=== PATIENT | female | born 1965 | race Caucasian/White ===

== ENCOUNTER 2016-06-17 11:37 | Emergency (ER) | payer MEDICAID ==
--- NOTE | 2016-06-17 11:57 | ER Document Report ---
ED Medical Screen (RME) - General Stated Complaint: BLOOD PRESSURE ISSUE Time seen by provider: 11:55 Mode of Arrival: Ambulatory Information source: Patient Notes: 50-year-old female presents to ED for elevated blood pressure. She was sent by her [facility] care due to high blood pressure in the doctor's office. At the [facility] her blood pressure was 220/104. she states she has a headache. Menopause I have greeted and performed a rapid initial assessment of this patient. A comprehensive ED assessment and evaluation of the patient, analysis of test results and completion of medical decision making process will be conducted by an additional ED providers. TRAVEL OUTSIDE OF THE [place] IN LAST 30 DAYS: No - Related Data Allergies/Adverse Reactions: No Known Allergies Allergy (Unverified 07/04/14 11:50) Past Medical History - Past Medical History Cardiac Medical History: Reports: Hx Heart Attack, Hx Hypertension Denies: Hx Coronary Artery Disease Pulmonary Medical History: Denies: Hx Asthma, Hx Bronchitis, Hx COPD, Hx Pneumonia Neurological Medical History: Denies: Hx Cerebrovascular Accident, Hx Seizures Musculoskeltal Medical History: Reports Hx Arthritis - Immunizations Hx Diphtheria, Pertussis, Tetanus Vaccination: No
--- NOTE | 2016-06-17 12:27 | ER Document Report ---
ED General - General Chief Complaint: Blood Pressure Problem Stated Complaint: BLOOD PRESSURE ISSUE Mode of Arrival: Ambulatory Notes: 50-year-old female past medical history hypertension and GA sent here by her primary physician for elevated blood pressure. She states that her blood pressure was 220/110 at her primary physician's office and they were concerned because she has also been having headaches and chest pain over the recent past therefore they sent her here. However, the patient states that her headaches and chest pain started only when she was switched to losartan with potassium which is a new medication for her. She states that she thinks that her symptoms are related to this new medication that she does not like taking it. She states that the new medication "makes me feel better". She states that she last had some chest pains last night and they were her usual chest pains. They are not worsened with exertion or breathing. She has no shortness of breath nausea vomiting diaphoresis with the chest pain. States she has had some heart attacks in the past but denies any family history or diagnoses of diabetes or hyperlipidemia. She denies any tobacco/cocaine use. She denies any prior history of DVT/PE or family history of same. Denies any recent surgery or prolonged immobilization. Denies any history of cancer or blood clotting disorders. Denies any estrogen use. She does not currently have any chest pain or headache, and she is symptom-free. TRAVEL OUTSIDE OF THE [place] IN LAST 30 DAYS: No - Related Data Allergies/Adverse Reactions: No Known Allergies Allergy (Verified 06/17/16 11:56) Past Medical History - General Information source: Patient - Social History Smoking Status: Never Smoker Chew tobacco use (# tins/day): No Frequency of alcohol use: None Drug Abuse: None Family History: Reviewed & Not Pertinent Patient has suicidal ideation: No Patient has homicidal ideation: No - Past Medical History Cardiac Medical History: Reports: Hx Heart Attack, Hx Hypertension Denies: Hx Coronary Artery Disease Pulmonary Medical History: Denies: Hx Asthma, Hx Bronchitis, Hx COPD, Hx Pneumonia Neurological Medical History: Denies: Hx Cerebrovascular Accident, Hx Seizures Renal/ Medical History: Denies: Hx Peritoneal Dialysis Musculoskeltal Medical History: Reports Hx Arthritis - Immunizations Hx Diphtheria, Pertussis, Tetanus Vaccination: No Review of Systems - Review of Systems Notes: See history of present illness for pertinent positive review of systems; otherwise all review of systems have been reviewed and are negative Physical Exam - Vital signs Vitals: Temp Pulse Resp BP Pulse Ox 97.5 F 65 16 154/93 H 100 06/17/16 11:54 06/17/16 11:54 06/17/16 11:54 06/17/16 11:54 06/17/16 11:54 - Notes Notes: PHYSICAL EXAMINATION: GENERAL: Well-appearing and in no acute distress. Morbidly obese seen sitting in bed. HEAD: Atraumatic, normocephalic. EYES: Pupils equal round and reactive to light, extraocular movements intact, sclera anicteric, conjunctiva are normal. ENT: nares patent, oropharynx clear without exudates. Moist mucous membranes. NECK: Normal range of motion, supple without lymphadenopathy LUNGS: CTAB and equal. No wheezes rales or rhonchi. HEART: Regular rate and rhythm without murmurs ABDOMEN: Soft, no tenderness. No guarding, no rebound EXTREMITIES: Normal range of motion, no pitting edema. No cyanosis. NEUROLOGICAL: Cranial nerves grossly intact. Normal sensory/motor exams. PSYCH: Normal mood, normal affect. SKIN: Warm, Dry, normal turgor, no rashes or lesions noted Course - Re-evaluation Re-evalutation: 06/17/16 12:28 MEDICAL DECISION MAKING: Concern for hypertensive-related symptoms versus medication side effects versus ACS I have low clinical suspicion for ACS given the history and physical exam I suspect her symptoms are more so related to the new blood pressure medication Will check a single troponin as her symptoms started more than 8 hours ago as well as EKG/CXR Patient understands and agrees to the plan of care 06/17/16 13:45 EKG my interpretation rate nl rhythm reg No appreciable ST elevation or depression Normal UT QRS QT Nonspecific ST T-wave changes Compared to 06/24/2014 EKG 06/17/16 14:19 Troponin negative, CXR negative D/w pt these results and f/u PCP for HTN med adjustments She understands agrees POC - Vital Signs Vital signs: Temp Pulse Resp BP Pulse Ox 97.7 F 65 16 147/93 H 97 06/17/16 13:47 06/17/16 11:54 06/17/16 13:47 06/17/16 13:47 06/17/16 13:47 Discharge - Discharge Clinical Impression: High blood pressure disorder Qualifiers: Hypertension type: unspecified secondary hypertension Qualified Code(s): I15.9 - Secondary hypertension, unspecified Condition: Good Disposition: HOME, SELF-CARE Additional Instructions: You were seen in the emergency department at [facility]. Your chest x-ray and blood work were normal. Please followup with your primary physician in the next few days for further management/evaluation. Please return to the emergency department for worsening of symptoms or any symptom that you deem to be concerning or life-threatening. Thank you for allowing us to be part of your care. Referrals: AMBER OLIVAREZ PA [Primary Care Provider] - Follow up in 3-5 days
--- NOTE | 2016-06-17 13:00 | EKG REPORT ---
SEVERITY:- NORMAL ECG - SINUS RHYTHM : Confirmed by: Lino Oropeza MD 17-Jun-2016 12:59:20
[2016-06-17 13:49] VITALS: BP 147/93
== END 2016-06-17 14:20 | disposition home or self-care (01) ==
LOC: ER 11:37
DX: I10 Essential (primary) hypertension (principal); R51 Headache; R07.9 Chest pain, unspecified; I25.2 Old myocardial infarction; Z79.899 Other long term (current) drug therapy; E66.01 Morbid (severe) obesity due to excess calories; Z68.37 Body mass index [BMI] 37.0-37.9, adult
CPT/HCPCS: 36415; 71020; 84484; 93005; 93010; 99284

== ENCOUNTER 2017-02-13 19:45 | Emergency (ER) | payer MEDICAID ==
--- NOTE | 2017-02-13 21:33 | RADIOLOGY REPORT (SQ) ---
EXAM DESCRIPTION: ANKLE LEFT COMPLETE COMPLETED DATE/TIME: 02/13/2017 9:13 pm REASON FOR STUDY: fall COMPARISON: None. NUMBER OF VIEWS: Three views. TECHNIQUE: AP, lateral, and oblique radiographic images acquired of the left ankle. LIMITATIONS: None. FINDINGS: MINERALIZATION: Normal. BONES: There is an oblique fracture of the distal fibula. No other evidence for fracture is seen. JOINTS: No effusions. SOFT TISSUES: Soft tissue swelling is identified. OTHER: No other significant finding. IMPRESSION: Oblique fracture of the distal fibula. No other evidence for fracture is seen. TECHNICAL DOCUMENTATION: JOB ID: [id number] [employer]- All Rights Reserved
[2017-02-13] MEDS ORDERED: OXYCODONE-ACETAMINOPHEN 5-325 MG TABLET PO ONE (21:39)
--- NOTE | 2017-02-13 21:46 | ER Document Report ---
ED General - General Chief Complaint: Ankle Injury Stated Complaint: FALL/LEFT ANKLE PAIN Time Seen by Provider: 02/13/17 21:29 TRAVEL OUTSIDE OF THE [place] IN LAST 30 DAYS: No - HPI Patient complains to provider of: Left ankle pain Notes: Patient coming in for evaluation of left ankle pain. Patient states sprained her ankle approximately 9 days ago was walking down steps today when she fell states she heard a pop when she fell down. Patient states intense pain and swelling of the left ankle denies any other issues. Upon my evaluation patient has obvious ecchymosis of the lateral and medial malleolus. Capillary refill does look intact there is no signs of open fracture - Related Data Allergies/Adverse Reactions: No Known Allergies Allergy (Verified 06/17/16 11:56) Past Medical History - Social History Smoking Status: Never Smoker Chew tobacco use (# tins/day): No Frequency of alcohol use: None Drug Abuse: None Family History: Reviewed & Not Pertinent Patient has suicidal ideation: No Patient has homicidal ideation: No - Past Medical History Cardiac Medical History: Reports: Hx Heart Attack, Hx Hypertension Denies: Hx Coronary Artery Disease Pulmonary Medical History: Denies: Hx Asthma, Hx Bronchitis, Hx COPD, Hx Pneumonia Neurological Medical History: Denies: Hx Cerebrovascular Accident, Hx Seizures Renal/ Medical History: Denies: Hx Peritoneal Dialysis Musculoskeltal Medical History: Reports Hx Arthritis Past Surgical History: Reports: Hx Cardiac Catheterization, Hx Orthopedic Surgery - ORIF left wrist - Immunizations Hx Diphtheria, Pertussis, Tetanus Vaccination: No Review of Systems - Review of Systems Constitutional: No symptoms reported EENT: No symptoms reported Cardiovascular: No symptoms reported Respiratory: No symptoms reported Gastrointestinal: No symptoms reported Genitourinary: No symptoms reported Female Genitourinary: No symptoms reported Musculoskeletal: Ankle swelling - And pain Skin: No symptoms reported Hematologic/Lymphatic: No symptoms reported Neurological/Psychological: No symptoms reported -: Yes All other systems reviewed and negative Physical Exam - Vital signs Vitals: Temp Pulse BP Pulse Ox 97.5 F 146 H 195/106 H 69 L 02/13/17 20:20 02/13/17 20:20 02/13/17 20:20 02/13/17 20:20 Interpretation: Normal - General General appearance: Appears well, Alert - HEENT Head: Normocephalic, Atraumatic Eyes: Normal Pupils: PERRL - Respiratory Respiratory status: No respiratory distress Chest status: Nontender Breath sounds: Normal Chest palpation: Normal - Cardiovascular Rhythm: Regular Heart sounds: Normal auscultation Murmur: No - Abdominal Inspection: Normal Distension: No distension Bowel sounds: Normal Tenderness: Nontender Organomegaly: No organomegaly - Back Back: Normal, Nontender - Extremities General upper extremity: Normal inspection, Nontender, Normal color, Normal ROM , Normal temperature General lower extremity: Normal inspection, Tender - Tenderness and swelling to the left ankle., Normal color, Normal ROM, Normal temperature, Normal weight bearing - Neurological Neuro grossly intact: Yes Cognition: Normal Orientation: AAOx4 Enzo Coma Scale Eye Opening: Spontaneous Enzo Coma Scale Verbal: Oriented Enzo Coma Scale Motor: Obeys Commands Presto Coma Scale Total: 15 Speech: Normal Motor strength normal: LUE, RUE, LLE, RLE Sensory: Normal - Psychological Associated symptoms: Normal affect, Normal mood - Skin Skin Temperature: Warm Skin Moisture: Dry Skin Color: Normal Course - Re-evaluation Re-evalutation: 02/13/17 22:52 Patient coming in for evaluation of ankle pain patient has a fracture patient was placed in a posterior short leg with ankle stirrup. Patient was encouraged follow-up with orthopedics. Pain medication was given patient discharged home - Vital Signs Vital signs: Temp Pulse Resp BP Pulse Ox 98.0 F 85 16 152/121 H 95 02/13/17 22:30 02/13/17 22:30 02/13/17 20:23 02/13/17 22:30 02/13/17 22:30 Procedures - Immobilization Left Ankle Immobilizer type: Ankle stirrup, Short Leg Posterior Performed by: PCT Post-Proc Neuro Vasc Exam: Normal Alignment checked and good: Yes Discharge - Discharge Clinical Impression: Ankle fracture, left Qualifiers: Encounter type: initial encounter Fracture type: closed Qualified Code(s): S82.892A - Other fracture of left lower leg, initial encounter for closed fracture Condition: Good Disposition: HOME, SELF-CARE Instructions: Use of Crutches ([facility]), Fracture of Distal Fibula ([facility]), Ice & Elevation ([facility]), Oral Narcotic Medication ([facility]) Additional Instructions: Take medication as prescribed. SHe may also take Tylenol Motrin for pain control. Return to the ER if symptoms worsen. Please make sure he follow-up with orthopedic doctor provided Prescriptions: Oxycodone HCl 5 mg PO Q6 #30 tablet Forms: Return to Work Referrals: LAMAR MORA MD [ACTIVE STAFF] - Follow up in 3-5 days
[2017-02-13 22:33] VITALS: BP 152/121
== END 2017-02-13 22:40 | disposition home or self-care (01) ==
LOC: ER 19:45
PROC: 2W3RX1Z Immobilization of Left Lower Leg using Splint (ICD-10-PCS; principal; 2017-02-13)
DX: S82.432A Displaced oblique fracture of shaft of left fibula, initial encounter for closed fracture (principal); W10.9XXA Fall (on) (from) unspecified stairs and steps, initial encounter; I10 Essential (primary) hypertension; I25.2 Old myocardial infarction
CPT/HCPCS: 99283

== ENCOUNTER 2017-02-23 12:23 | Inpatient (IN) | payer MEDICAID ==
[2017-02-20 12:38] LABS: ABSOLUTE EOSINOPHILS # (AUTO) 0.2 10^3/uL (0.0-0.6); ABSOLUTE LYMPHOCYTES (AUTO) 1.3 10^3/uL (0.5-4.7); ABSOLUTE MONOCYTES (AUTO) 0.5 10^3/uL (0.1-1.4); BASOPHILS % (AUTO) 0.2 % (0-2); EOSINOPHILS % (AUTO) 2.3 % (0-6); HEMATOCRIT 38.4 % (36.0-47.0); HEMOGLOBIN 13.3 g/dL (12.0-15.5); HGB HCT DIFFERENCE 1.5; LYMPHOCYTES % (AUTO) 18.9 % (13-45); MEAN CORPUSCULAR HGB CONC 34.7 g/dL (32.0-36.0); MEAN CORPUSCULAR VOLUME 87 fl (80-97); MONOCYTES % (AUTO) 6.8 % (3-13); RED BLOOD COUNT 4.43 10^6/uL (3.72-5.28); RED CELL DISTRIBUTION WIDTH 12.9 % (11.5-14.0); SEGMENTED NEUTROPHILS % (AUTO) 71.8 % (42-78); WHITE BLOOD COUNT 6.9 10^3/uL (4.0-10.5)
[2017-02-20 12:51] LABS: APPEARANCE,URINE CLEAR; BILIRUBIN,URINE NEGATIVE (NEGATIVE); GLUCOSE, URINE NEGATIVE (NEGATIVE); KETONES,URINE NEGATIVE (NEGATIVE); LEUKOCYTE ESTERASE,URINE LARGE (NEGATIVE); NITRITE,URINE NEGATIVE (NEGATIVE); PROTEIN,URINE NEGATIVE (NEGATIVE); URINE SPECIFIC GRAVITY 1.019; UROBILINOGEN,URINE NEGATIVE mg/dL (<2.0)
[2017-02-20 13:10] LABS: ANION GAP 14 (5-19); BLOOD UREA NITROGEN 27 mg/dL (7-20); CALCIUM 10.1 mg/dL (8.4-10.2); CARBON DIOXIDE 23 mmol/L (22-30); CHLORIDE 105 mmol/L (98-107); CREATININE RESULT 0.89 mg/dL (0.52-1.25); GLUCOSE 89 mg/dL (75-110); POTASSIUM 4.6 mmol/L (3.6-5.0); SODIUM 142.4 mmol/L (137-145)
--- NOTE | 2017-02-20 21:03 | EKG REPORT ---
SEVERITY:- NORMAL ECG - SINUS RHYTHM : Confirmed by: Shawna Koch MD 20-Feb-2017 21:02:33
[~2017-02-23 12:23] MED LIST: LACTATED RINGERS 1000 ML IV PRN; LIDOCAINE 0.5% INJ-PF (5 MG/ML) 50 ML SDV SUBCUT PRN
[2017-02-23] MEDS ORDERED: FENTANYL CITRATE INJ/PF 250 MCG/5 ML AMPULE ONE (13:17)
[2017-02-23] MEDS ORDERED: LIDOCAINE 2% INJ-PF (20 MG/ML) 10 ML AMPUL ONE (13:17)
[2017-02-23] MEDS ORDERED: MIDAZOLAM 2 MG/2 ML INJ ONE (13:17)
[2017-02-23] MEDS ORDERED: PROPOFOL INJ 200 MG/20 ML VIAL IV ONE (13:18)
[2017-02-23] MEDS ORDERED: ACETAMINOPHEN 100 ML IV ONE (13:18)
[2017-02-23] MEDS ORDERED: ONDANSETRON HCL INJ/PF 4 MG/2 ML SDV ONE (13:18)
[2017-02-23] MEDS: CEFAZOLIN 2 GM/D5W RTU 2 GM/50 ML RTUPB IV PRN ×2 (13:35→19:22)
[2017-02-23] MEDS ORDERED: HYDRALAZINE HCL INJ/PF 20 MG/1 ML SDV ONE (14:14)
[2017-02-23] MEDS ORDERED: DIPHENHYDRAMINE HCL 50 MG/ML VIAL IV PRN (14:17)
[2017-02-23] MEDS ORDERED: ONDANSETRON HCL INJ/PF 4 MG/2 ML SDV IV PRN ×2 (14:17→18:45)
[2017-02-23] MEDS ORDERED: OXYCODONE-ACETAMINOPHEN 5-325 MG TABLET PO PRN ×2 (14:17)
[2017-02-23] MEDS ORDERED: PROMETHAZINE HCL INJ 25 MG/1 ML VIAL IV PRN ×2 (14:17)
[2017-02-23] MEDS ORDERED: MEPERIDINE HCL/PF INJ 25 MG/1 ML DISP.SYRIN IV PRN (14:17)
[2017-02-23] MEDS ORDERED: FENTANYL CITRATE INJ/PF 100 MCG/2 ML AMPUL IV PRN ×3 (14:17)
[2017-02-23] MEDS ORDERED: MORPHINE SULFATE 10 MG/ML INJ IV PRN (14:17)
[2017-02-23] MEDS ORDERED: HYDROMORPHONE HCL INJ/PF 2 MG/ML AMPULE ONE (15:08)
[2017-02-23] MEDS ORDERED: PROMETHAZINE HCL INJ 25 MG/1 ML VIAL ONE (15:15)
[2017-02-23] MEDS ORDERED: MORPHINE SULFATE 10 MG/ML INJ ONE (15:20)
--- NOTE | 2017-02-23 15:24 | Operative Report ---
Operative Report DATE OF SURGERY: 02/23/17 PREOPERATIVE DIAGNOSIS: Left lateral malleolus ankle fracture with deltoid ligament tear POSTOPERATIVE DIAGNOSIS: Same OPERATION: Left lateral malleolus ankle fracture SURGEON: CLAIRE PRIDE ANESTHESIA: GA TISSUE REMOVED OR ALTERED: None COMPLICATIONS: None ESTIMATED BLOOD LOSS: 50 mL INTRAOPERATIVE FINDINGS: As above PROCEDURE: Patient received 2 g of Ancef in the preoperative holding area. Patient was now taken to the operating room and induced and intubated in supine position. Once the tube was secured a thigh tourniquet was applied to left extremity. Extremity was prepped and draped in a normal surgical fashion. Timeout was done identifying the left as the correct site. Esmarch was used to exsanguinate the extremity and the tourniquet was inflated to 300 mmHg. A standard lateral incision was done straight over the distal fibula. I noted that the patient had a venous return showing that the tourniquet was not adequately compressing so the tourniquet was let down after 7 minutes. Bovie was used to obtain hemostasis. Check position was taken down to the bone and then periosteal elevator was used to expose the fracture site and elevate the periosteum at the fracture site. Both fragments were visualized and I Hohmann was used to retract the tissue. I was able to then reduce the fracture with reduction clamps. C-arm pictures were taken to confirm our reduction. I then applied the appropriate plate and make sure was in a proper alignment and with C -arm. Once I was satisfied with the proximal distal situation and the AP lateral position of the plate I proceeded then to use the drill guide and drill to drill the proximal hole in the plate in the distal fragment. I measured and placed a proper length screw. I repeated this with the distal hole in the plate to secure the proximal fragment. Reduction clamp was removed and the fracture stayed reduced. AP and lateral x-rays confirm there is no change in alignment. I then proceeded to fill in the remaining holes I drilling and using C-arm and measuring guide to applied appropriate screws. Once I was satisfied with my lateral fixation [ I then turned my attention to the medial malleolus. A curvilinear incision was done over the medial aspect of the ankle using a 15 blade. Dissection was done with a Metzenbaum scissor. Branches of the small saphenous vein was visualized and retracted. Fracture site was exposed with hematoma. Between 15 blade and periosteal elevator was able to expose the 2 fracture ends. I used a pointed reduction clamp to do my reduction of the medial malleolus. C-arm confirmed proper reduction and therefore I used [address] him in the distal fragment into the proximal aspect of the tibia. AP and lateral C-arm pictures were taken confirming placement and reduction again. I then proceeded to use self drilling self-tapping screws after measuring appropriate length for both of them. C-arm pictures were taken on syndrome to confirm placement of the screws without any complications. I was satisfied with my reduction and fixation of the medial malleolus I then proceeded to close the wound medially with 0 Vicryl to Vicryl and emmanuel.] At this point I proceeded to close my lateral wound with 0 Vicryl and 3-0 Vicryl and emmanuel for skin. Tourniquet was let down and the dressing was applied. Xeroform 4 x 4 sterile dressing followed by Sof-Rol was applied. A posterior Ortho-Glass splint with a Ortho-Glass stirrup splint was applied and overwrapped with an Geronimo bandage. I held the foot in neutral and waiting until the splint hardened. At this point drapes were removed and patient was extubated and sent to PACU in stable condition.
--- NOTE | 2017-02-23 15:33 | PDOC DISCHARGE SUMMARY ---
Discharge Summary (SDC) - Discharge Final Diagnosis: ORIF of left lateral malleolus fracture Date of Surgery: 02/23/17 Discharge Date: 02/23/17 Condition: Good Treatment or Instructions: Keep splint dry clean and intact. Weight-bear left lower extremity. Use crutches or walker for balance. Follow-up in 2 weeks. Prescriptions: Oxycodone HCl/Acetaminophen [Percocet 5-325 mg Tablet] 1 - 2 tab PO ASDIR PRN # 60 tablet PRN Reason: Referrals: AMBER OLIVAREZ PA [Primary Care Provider] - Discharge Diet: As Tolerated Respiratory Treatments at Home: Deep Breathing/Coughing Discharge Activity: No Driving, Keep Legs Elevated, No Lifting/Push/Pulling Home Care Assistance: None Needed Adaptive Devices on Discharge: Axillary Crutches, Standard Walker Report the Following to Your Physician Immediately: Shortness of Breath, Vomiting, Increase in Pain, Fever over 101 Degrees, Unusual Bleeding, Redness, Swelling, Warmth, Drainage-Yellow, Drainage-Calabrese, Drainage-Green, Drainage-Foul Smelling
--- NOTE | 2017-02-23 15:48 | RADIOLOGY REPORT (SQ) ---
EXAM DESCRIPTION: NO CHG FLUORO; ANKLE LEFT COMPLETE COMPLETED DATE/TIME: 02/23/2017 3:14 pm REASON FOR STUDY: ORIF LEFT ANKLE ASSISTED WITH FLUORO IN OR S82.62XA DISP FX OF LATERAL MALLEOLUS OF LEFT FIBULA, INIT COMPARISON: 02/13/2017. FLUOROSCOPY TIME: 0.2 minutes. 5 images saved to PACS. TECHNIQUE: Intra-operative images acquired during surgical procedure to evaluate progress. NUMBER OF IMAGES: 5 images. LIMITATIONS: None. FINDINGS: Surgical fixation of the distal fibula fracture with placement of hardware. IMPRESSION: IMAGE(S) OBTAINED DURING PROCEDURE. COMMENT: Quality ID [id number]: Final reports for procedures using fluoroscopy that document radiation exp osure indices, or exposure time and number of fluorographic images (if radiation exposure indices are not available) Please consult full operative report of the attending physician for description of the procedure. TECHNICAL DOCUMENTATION: JOB ID: [id number] [employer]- All Rights Reserved
[2017-02-23] MEDS ORDERED: NALOXONE HCL INJ/PF 0.4 MG/1 ML SDV ONE (16:31)
[2017-02-23] MEDS ORDERED: HEPARIN SOD (PORCINE) 5,000 UNIT/ML 1 ML SYRINGE ONE (16:56)
[2017-02-23] MEDS ORDERED: HEPARIN SODIUM,PORCINE/D5W 25,000 UNIT/250 ML RTUINJ IV ONE (16:59)
[2017-02-23] MEDS ORDERED: ASPIRIN 81 MG TABLET, CHEWABLE PO ONE (17:00)
[2017-02-23 17:07] LABS: ALANINE AMINOTRANSFERASE 34 U/L (9-52); ALBUMIN 3.9 g/dL (3.5-5.0); ALKALINE PHOSPHATASE 67 U/L (38-126); ANION GAP 12 (5-19); ASPARTATE AMINO TRANSFERASE 26 U/L (14-36); BILIRUBIN,DIRECT 0.4 mg/dL (0.0-0.4); BILIRUBIN,TOTAL 0.4 mg/dL (0.2-1.3); BLOOD UREA NITROGEN 13 mg/dL (7-20); CALCIUM 9.4 mg/dL (8.4-10.2); CARBON DIOXIDE 22 mmol/L (22-30); CHLORIDE 107 mmol/L (98-107); CREATINE KINASE 70 U/L (30-135); CREATININE RESULT 0.71 mg/dL (0.52-1.25); GLUCOSE 167 mg/dL (75-110); POTASSIUM 3.5 mmol/L (3.6-5.0); SODIUM 140.9 mmol/L (137-145); TOTAL PROTEIN 6.4 g/dL (6.3-8.2)
[2017-02-23 17:19] LABS: CREATINE KINASE MB 1.07 ng/mL (<4.55); TROPONIN I 0.022 ng/mL
[2017-02-23 17:29] LABS: PROTHROMBIN TIME 13.5 SEC (11.4-15.4)
[2017-02-23] MEDS ORDERED: ACETAMINOPHEN 325 MG TABLET PO PRN (18:45)
[2017-02-23] MEDS ORDERED: ONDANSETRON 4 MG TAB.RAPDIS PO PRN (18:45)
[2017-02-23] MEDS ORDERED: IPRATROPIUM/ALBUTEROL 0.5-2.5 MG/3 ML AMPUL NEB PRN (18:45)
[2017-02-23] MEDS ORDERED: HEPARIN SOD (PORCINE) 1,000 UNIT/ML 10 ML VIAL IV ONE (18:51)
[2017-02-23] MEDS ORDERED: HEPARIN SODIUM,PORCINE/D5W 25,000 UNIT/250 ML RTUINJ IV PRN (18:51)
[2017-02-23] MEDS ORDERED: HEPARIN SOD (PORCINE) 1,000 UNIT/ML 10 ML VIAL IV PRN (18:51)
[2017-02-23] MEDS ORDERED: EPINEPHRINE INJ 1 MG/10 ML DISP.SYRIN ONE (18:55)
[2017-02-23] MEDS ORDERED: TRAMADOL HCL 50 MG TABLET PO PRN ×2 (18:58→19:18)
[2017-02-23] MEDS ORDERED: CLOPIDOGREL BISULFATE 75 MG TABLET PO ONE (19:00)
--- NOTE | 2017-02-23 19:09 | PDOC CONSULTATION ---
Consultation Consult Date: 02/23/17 Attending physician:: CLAIRE PRIDE Consult reason:: vfib arrest History of Present Illness Admission Date/PCP: 02/23/17 18:00 AMBER OLIVAREZ Patient complains of: Cardiac arrest History of Present Illness: KIMI RAYMOND is a 51 year old female who had an open reduction internal fixation of the left ankle fracture who did well surgery however in the PACU became unresponsive and had a witnessed V. fib cardiac arrest. According the nurse staff she had ventricular fibrillation and they started chest compressions. The code cart was moved into position and she was DC cardioverted 1 with resumption of normal sinus rhythm. The patient did regain consciousness and had no complaints. The patient was seen by Dr. Trevino of cardiology who recommended the patient be transferred to a tertiary care. The patient has refused that. I interviewed the patient in the PACU and also instructed her that she could not be cared for at our facility because we did not have cardiac catheterization capabilities. The patient again refused transfer. I have instructed the patient that she stands a high chance of if she stays at our facility however she refuses to be transferred. Because of that we will admit to the intensive care unit and treat her cardiac issues. Past Medical History Cardiac Medical History: Reports: Myocardial Infarction - x 3 , Hypertension Denies: Coronary Artery Disease Pulmonary Medical History: Denies: Asthma, Bronchitis, Chronic Obstructive Pulmonary Disease (COPD), Pneumonia EENT Medical History: Reports: None Neurological Medical History: Denies: Seizures Endocrine Medical History: Reports: None Renal/ Medical History: Reports: None Malignancy Medical History: Reports: None GI Medical History: Reports: None Musculoskeltal Medical History: Reports: Arthritis - knee left Psychiatric Medical History: Reports: None Hematology: Reports: None Denies: Anemia Infectious Medical History: Reports: None Past Surgical History Past Surgical History: Reports: Cardiac Catheterization - She denies any blockages., Orthopedic Surgery - ORIF left wrist Social History Information Source: Patient Lives with: Family Smoking Status: Never Smoker Frequency of Alcohol Use: None Hx Recreational Drug Use: No Drugs: None Hx Prescription Drug Abuse: No - Advance Directive Resuscitation Status: Full Code Family History Family History: Mother at age 52 from congestive heart failure. father at age 37 from coronary artery disease. Parental Family History Reviewed: Yes Children Family History Reviewed: No Sibling(s) Family History Reviewed.: No Medication/Allergy Home Medications: Ibuprofen [Ibuprofen Ib] 4 tab PO Q8 07/04/14 Hydrochlorothiazide 25 mg PO QHS 07/07/14 Clonidine HCl 1 tab PO QHS 02/20/17 Tramadol HCl 1 tab PO Q6 PRN 02/20/17 Oxycodone HCl/Acetaminophen [Percocet 5-325 mg Tablet] 1 - 2 tab PO ASDIR PRN # 60 tablet 02/23/17 Allergies/Adverse Reactions: No Known Allergies Allergy (Verified 02/23/17 13:08) Review of Systems Constitutional: ABSENT: chills, fever(s), headache(s), weight gain, weight loss Eyes: PRESENT: as per HPI Cardiovascular: PRESENT: as per HPI. ABSENT: chest pain, dyspnea on exertion, edema, orthropnea, palpitations Respiratory: ABSENT: cough, hemoptysis Gastrointestinal: ABSENT: abdominal pain, constipation, diarrhea, hematemesis, hematochezia, nausea, vomiting Genitourinary: ABSENT: dysuria, hematuria Integumentary: ABSENT: rash, wounds Neurological: ABSENT: abnormal gait, abnormal speech, confusion, dizziness, focal weakness, syncope Psychiatric: ABSENT: anxiety, depression Endocrine: ABSENT: cold intolerance, heat intolerance, polydipsia, polyuria Hematologic/Lymphatic: ABSENT: easy bleeding, easy bruising Physical Exam Vital Signs: Temp Pulse Resp BP Pulse Ox 98.2 F 83 17 180/105 H 98 02/23/17 12:45 02/23/17 12:45 02/23/17 12:45 02/23/17 12:45 02/23/17 12:45 Intake & Output 02/22/17 02/23/17 02/24/17 06:59 06:59 06:59 Intake Total 650 Output Total 600 Balance 50 Weight 111.13 kg General appearance: PRESENT: no acute distress, morbidly obese Head exam: PRESENT: atraumatic, normocephalic Eye exam: PRESENT: conjunctiva pink, EOMI, PERRLA. ABSENT: scleral icterus Ear exam: PRESENT: normal external ear exam Mouth exam: PRESENT: moist, tongue midline Neck exam: ABSENT: carotid bruit, JVD, lymphadenopathy, thyromegaly Respiratory exam: PRESENT: clear to auscultation kip. ABSENT: rales, rhonchi, wheezes Cardiovascular exam: PRESENT: RRR. ABSENT: diastolic murmur, rubs, systolic murmur Pulses: PRESENT: normal dorsalis pedis pul Vascular exam: PRESENT: normal capillary refill GI/Abdominal exam: PRESENT: normal bowel sounds, soft. ABSENT: distended, guarding, mass, organolmegaly, rebound, tenderness Rectal exam: PRESENT: deferred Extremities exam: PRESENT: other - Cast present on the left leg.. ABSENT: calf tenderness, clubbing, pedal edema Neurological exam: PRESENT: alert, awake, oriented to person, oriented to place , oriented to time, oriented to situation, CN II-XII grossly intact. ABSENT: motor sensory deficit Psychiatric exam: PRESENT: appropriate affect Skin exam: PRESENT: dry, intact, warm. ABSENT: cyanosis, rash Results Laboratory Results: 02/23/17 16:26 02/23/17 16:26 Sodium 140.9 Potassium 3.5 L Chloride 107 Carbon Dioxide 22 Anion Gap 12 BUN 13 Creatinine 0.71 Est GFR ( Amer) > 60 Est GFR (Non-Af Amer) > 60 Glucose 167 H Calcium 9.4 Total Bilirubin 0.4 AST 26 ALT 34 Alkaline Phosphatase 67 Total Protein 6.4 Albumin 3.9 02/23/17 02/23/17 02/23/17 16:26 16:26 16:26 Creatine Kinase 70 CK-MB (CK-2) 1.07 Troponin I 0.022 Cancelled Impressions: Ankle X-Ray 02/23/17 00:00 IMPRESSION: IMAGE(S) OBTAINED DURING PROCEDURE. Fluoroscopy 02/23/17 00:00 IMPRESSION: IMAGE(S) OBTAINED DURING PROCEDURE. Assessment & Plan - Diagnosis (1) Cardiac arrest Is this a current diagnosis for this admission?: Yes Plan: The patient had a ventricular fibrillation cardiac arrest that was witnessed in the PACU. The patient received a short course of CPR and was DC cardioverted 1 with resumption of normal sinus rhythm. The patient has been counseled that she should go to a tertiary care facility however she refuses. She has been told this by multiple physicians including cardiology Dr. Trevino, orthopedic surgeon Dr. Mallory as well as myself. I have instructed her that she stands a high chance of if she stays here. She is competent to make decisions. Her son and brother at the bedside and I have encouraged her to go however the patient refuses. Because of this we will admit to our intensive care unit. Will treat with a heparin drip, metoprolol, Plavix, aspirin. (2) Coronary artery disease Is this a current diagnosis for this admission?: Yes Plan: The patient has a history of coronary artery disease by her report but tells me that she had a cardiac catheterization 2002 with no blockages. Will need to get her old records. Patient has ST segment elevation in lead III. Continue with aspirin, Plavix, heparin, beta-inés. (3) Hypertension Is this a current diagnosis for this admission?: Yes (4) Ankle fracture Is this a current diagnosis for this admission?: Yes Plan: Patient had surgical repair today - Time Time Spent: 50 to 70 Minutes - Inpatient Certification Medical Necessity: Need Close Monitoring Due to Risk of Patient Decompensation
[2017-02-23 19:10] LABS: ABSOLUTE BASOPHILS # (AUTO) 0.1 10^3/uL (0.0-0.2); ABSOLUTE LYMPHOCYTES (AUTO) 1.1 10^3/uL (0.5-4.7); ABSOLUTE MONOCYTES (AUTO) 0.9 10^3/uL (0.1-1.4); ABSOLUTE NEUT (AUTO) 15.5 10^3/uL (1.7-8.2); BASOPHILS % (AUTO) 0.3 % (0-2); EOSINOPHILS % (AUTO) 0.1 % (0-6); HEMATOCRIT 36.4 % (36.0-47.0); HEMOGLOBIN 12.8 g/dL (12.0-15.5); LYMPHOCYTES % (AUTO) 6.5 % (13-45); MEAN CORPUSCULAR HEMOGLOBIN 30.2 pg (27.0-33.4); MEAN CORPUSCULAR VOLUME 86 fl (80-97); MONOCYTES % (AUTO) 4.9 % (3-13); RED BLOOD COUNT 4.22 10^6/uL (3.72-5.28); RED CELL DISTRIBUTION WIDTH 13.1 % (11.5-14.0); SEGMENTED NEUTROPHILS % (AUTO) 88.2 % (42-78); WHITE BLOOD COUNT 17.6 10^3/uL (4.0-10.5)
[2017-02-23 19:13] LABS: PROTHROMBIN TIME 13.8 SEC (11.4-15.4)
[2017-02-23 19:15] LABS: PARTIAL THROMBOPLASTIN TIME 95.3 SEC (23.5-35.8)
--- NOTE | 2017-02-23 19:41 | PDOC CONSULTATION ---
Consultation Consult Date: 02/23/17 Attending physician:: CLAIRE PRIDE History of Present Illness Admission Date/PCP: 02/23/17 18:00 AMBER OLIVAREZ Patient complains of: Status post ankle surgery currently sedated and lethargic History of Present Illness: KIMI RAYMOND is a 51 year old female who had an open reduction internal fixation of the left ankle fracture who did well surgery however in the PACU became unresponsive and had a witnessed V. fib cardiac arrest. According the nurse staff she had ventricular fibrillation and they started chest compressions. The code cart was moved into position and she was DC cardioverted 1 with resumption of normal sinus rhythm. The patient did regain consciousness and had no complaints. The patient was seen by Dr. Trevino of cardiology who recommended the patient be transferred to a tertiary care. The patient has refused that. I interviewed the patient in the PACU and also instructed her that she could not be cared for at our facility because we did not have cardiac catheterization capabilities. The patient again refused transfer. I have instructed the patient that she stands a high chance of if she stays at our facility however she refuses to be transferred. Because of that we will admit to the intensive care unit and treat her cardiac issues. This history was reviewed. I was initially called stat consult for V. fib cardiac arrest. Patient was successfully resuscitated. I ordered for a stat repeat EKG and a stat 2D echocardiogram. Repeat EKG shows ST segment elevation inferiorly indicative of acute inferior myocardial infarction with some reciprocal changes. Patient at that time was lethargic and not able to converse in a coherent manner. I felt that best treatment would be expedited transfer to tertiary care with heart catheterization and intervention facilities. In this regard I caught in touch with the transfer station operator at [facility]. Patient's EKGs were faxed. I also talked with [employer] agron[employer] instructor Dr. Fabrice Albarran. He kindly accepted the patient. I started patient on 4 baby aspirin to chew, heparin drip protocol. I did not give her any Plavix or other antiplatelet agent because sometimes the tertiary [facility] would give them other medications. Patient was noted to have intermittent episodes of severe sinus bradycardia but not needing temporary or transcutaneous pacemaker. Subsequently patient was noted to have stabilized. Later on patient was more coherent. All arrangements were made for patient to be transferred by air to [facility] but patient vehemently refused transfer saying that she is feeling fine and she wanted to go home. Patient's son, a 19-year-old and patient's adopted brother was brought to the room to try to convince the patient. However none of them had power of postal carrier. We also talked with ER physician who came and spoke to the patient and finally Dr. evans also came and talked with the patient. We all tried the patient to change her mind and consent to go to [facility] but she declined. It was felt by the staff that patient was alert oriented 3 and was able to make up her own mind. It was felt that this patient not having any chest pain, and that she was just postop, thrombolytics were relatively contraindicated. Patient was finally admitted to the unit with heparin, orders for Plavix 300 mg were given. Will start patient on metoprolol. Will also start patient on high-dose statins. Past Medical History Cardiac Medical History: Reports: Myocardial Infarction - x 3 , Hypertension Denies: Coronary Artery Disease Pulmonary Medical History: Denies: Asthma, Bronchitis, Chronic Obstructive Pulmonary Disease (COPD), Pneumonia EENT Medical History: Reports: None Neurological Medical History: Denies: Seizures Endocrine Medical History: Reports: None Renal/ Medical History: Reports: None Malignancy Medical History: Reports: None GI Medical History: Reports: None Musculoskeltal Medical History: Reports: Arthritis - knee left Psychiatric Medical History: Reports: None Hematology: Reports: None Denies: Anemia Infectious Medical History: Reports: None Past Surgical History Past Surgical History: Reports: Cardiac Catheterization - She denies any blockages., Orthopedic Surgery - ORIF left wrist Social History Information Source: Patient Lives with: Family Smoking Status: Never Smoker Frequency of Alcohol Use: None Hx Recreational Drug Use: No Drugs: None Hx Prescription Drug Abuse: No - Advance Directive Resuscitation Status: Full Code Surrogate healthcare decision maker:: Patient's son would be the surrogate decision-maker in case patient becomes incapacitated Family History Family History: Hypertension Parental Family History Reviewed: Yes Children Family History Reviewed: Yes Sibling(s) Family History Reviewed.: Yes Medication/Allergy Home Medications: Tramadol HCl 50 mg PO Q6HP PRN 02/20/17 Oxycodone HCl [Oxy-Ir 5 mg Tablet] 5 mg PO Q6HP PRN 02/24/17 Allergies/Adverse Reactions: No Known Allergies Allergy (Verified 02/23/17 13:08) Review of Systems Review of Systems: Please see history of present illness and past medical history as wall. Constitutional: No fever or chills reported. Head : No recent chronic headaches, recent head injury. Eyes: No recent eye pain, diplopia, redness, discharge, acute visual changes. Ears: No recent chronic ear pain, acute hearing loss, ear discharge. Oral cavity: No recent ulcerations, bleeding, oral cavity discomfort. Neck: No recent acute neck pain reported. Hematologic: No recent easy bruising or bleeding or hematologic malignancy reported. Lymphatic: No recent lymphatic malignancy, chronic lymphadenopathy reported yet Cardiovascular system review: See history of present illness. Respiratory system review: No recent chronic cough, hemoptysis, blood clots in the lungs reported. Mild Shortness of breath on exertion Gastrointestinal system review: Negative for any recent acute or chronic abdominal pain, hematemesis, melena, recent change in bowel habits. Genitourinary system review: No recent acute or chronic hematuria, flank pain, UTI etc. reported. Skin system review: Negative for any recent abnormal bruising, no rash, no pruritus reported. Neurologic: No prior history of strokes, mini strokes, seizure disorder. Psychologic: No history of major psychosis or major depression reported. Musculoskeletal: Minor aches and pains reported. No acute joint swelling reported. Patient is status post surgery left ankle. Endocrine: No recent polyuria, polydipsia, recent heat or cold intolerance. Physical Exam Vital Signs: Temp Pulse Resp BP Pulse Ox 97.9 F 75 15 134/78 H 99 02/23/17 18:43 02/23/17 18:43 02/23/17 18:43 02/23/17 18:43 02/23/17 18:43 Intake & Output 02/22/17 02/23/17 02/24/17 06:59 06:59 06:59 Intake Total 650 Output Total 600 Balance 50 Weight 111.13 kg Exam: GENERAL: well-nourished and in no acute distress. Alert and oriented x3 HEAD: Atraumatic, normocephalic. EYES: Pupils equal round and reactive to light, extraocular movements intact, sclera anicteric, conjunctiva are normal. ENT: TMs normal, nares patent, oropharynx clear without exudates. Moist mucous membranes. No oral ulcerations or bleeding gums noted NECK: supple without lymphadenopathy. Trachea is central. No cervical or axillary lymphadenopathy noted. Carotids are 2+, JVD WNL LUNGS: Respiration seems nonlabored, no significant accessory muscle action noted. Breath sounds clear to auscultation bilaterally and equal noted. No wheezes rales or rhonchi noted. No significant dullness noted on percussion. CHEST: Palpation of the chest wall shows no significant chest wall tenderness. No other significant abnormalities noted. HEART: [place] SLAB GRINDER, No PSH, 1/6 RUSSEL aortic area, 1/6 vázquez systolic murmur mitral area, no rubs, no gallops. ABDOMEN: Soft, no significant tenderness appreciated, normoactive bowel sounds. No guarding, no rebound. No rigidity noted . No masses appreciated. EXTREMITIES: Pedal pulses are 1-2+, no calf tenderness noted. No clubbing or cyanosis.trace to 1+ pedal edema noted NEUROLOGICAL: Focused neurological exam showed no significant neurologic deficit. Normal speech, no focal weakness appreciated. PSYCH: Normal mood, normal affect. Judgment and insight within normal limits. SKIN: No significant ecchymosis, rash, ulcerations or signs of pruritus noted. MUSCULOSKELETAL EXAM: No significant joint swelling noted. Left lower leg in cast from recent surgery. Results Laboratory Results: 02/23/17 18:56 02/23/17 16:26 02/23/17 02/23/17 16:26 18:56 WBC 17.6 H RBC 4.22 Hgb 12.8 Hct 36.4 MCV 86 MCH 30.2 MCHC 35.0 RDW 13.1 Plt Count 315 Seg Neutrophils % 88.2 H Lymphocytes % 6.5 L Monocytes % 4.9 Eosinophils % 0.1 Basophils % 0.3 Absolute Neutrophils 15.5 H Absolute Lymphocytes 1.1 Absolute Monocytes 0.9 Absolute Eosinophils 0.0 Absolute Basophils 0.1 Sodium 140.9 Potassium 3.5 L Chloride 107 Carbon Dioxide 22 Anion Gap 12 BUN 13 Creatinine 0.71 Est GFR ( Amer) > 60 Est GFR (Non-Af Amer) > 60 Glucose 167 H Calcium 9.4 Total Bilirubin 0.4 AST 26 ALT 34 Alkaline Phosphatase 67 Total Protein 6.4 Albumin 3.9 02/23/17 02/23/17 02/23/17 16:26 16:26 16:26 Creatine Kinase 70 CK-MB (CK-2) 1.07 Troponin I 0.022 Cancelled EKG Comments: Preop EKG is reviewed had shown sinus rhythm with minor nonspecific ST segment changes. Postop EKG reviewed showed ST segment elevation in lead III aVF with reciprocal changes in lead I aVL, right-sided leads not performed. Patient does have some coving ST segment changes lateral chest leads. Impressions: Ankle X-Ray 02/23/17 00:00 IMPRESSION: IMAGE(S) OBTAINED DURING PROCEDURE. Fluoroscopy 02/23/17 00:00 IMPRESSION: IMAGE(S) OBTAINED DURING PROCEDURE. Assessment & Plan - Diagnosis (1) Ventricular fibrillation Is this a current diagnosis for this admission?: Yes (2) ST-segment elevation myocardial infarction (STEMI) of inferior wall Is this a current diagnosis for this admission?: Yes (3) Cardiac arrest Is this a current diagnosis for this admission?: Yes (4) Coronary artery disease Qualifiers: Coronary Disease-Associated Artery/Lesion type: [place] artery Associated angina: angina presence unspecified Is this a current diagnosis for this admission?: Yes (5) Hypertension Is this a current diagnosis for this admission?: Yes - Notes Notes: ST segment elevation myocardial infarction: Patient refused transfer to tertiary care. She refused cardiac catheterization because of a previous bad experience. Patient does not want invasive treatment. Patient to be treated with medical management. This should include statins, aspirin, heparin, beta- blockers, SHYANNE inhibitors. TPA and other thrombolytics felt to be relatively contraindicated. Also patient not having any active chest pain. Patient not diabetic. Patient had a stat 2D echo and which shows wall motion abnormalities limited to inferior wall and overall LVEF within normal limits. Also therefore it was felt that risk benefits did not favor thrombolytic therapy at this point , at this current status as patient was not having chest pain and was hemodynamically stable. Cardiac arrest secondary to ventricular fibrillation from myocardial infarction. Patient to be monitored in the unit. Rec Amiodarone bolus and drip protocol. Could add lidocaine bolus and drip protocol if recurrence with chest pain or EKG changes. Coronary artery disease: Medical management will be optimized. Orders written. Hypertension: Recommend good control of blood pressure. Blood pressure goal 140 /90 or less for now, later on 135/85. - Time Time Spent: Greater than 70 Minutes - I was at the bedside. Total critical time spent was approximately 60 minutes. CODE STATUS was discussed, patient remains full code. Surrogate decision-maker unchanged. Multiple medical problems were addressed. More than 50% of the time spent coordinating care, discussing management plans with involved caregivers. Management plans discussed with involved personnels. Medical decision making was of moderate to high complexity, patient's has multiple comorbidities. Medications reviewed and adjusted accordingly: Yes
[2017-02-23] MEDS ORDERED: OXYCODONE-ACETAMINOPHEN 5-325 MG TABLET ONE (19:42)
--- NOTE | 2017-02-23 19:58 | XCELERA REPORT ---
[address] [address] Transthoracic Echocardiogram Report Name: KIMI RAYMOND Age: 51 yrs Gender: Female : 1965 Patient Status: Outpatient Patient Location: [facility] Study Date: 02/23/2017 04:39 PM Height: 69 in Weight: 244 lb BSA: 2.2 m2 Procedure: A complete two-dimensional transthoracic echocardiogram was performed (2D, M-mode, spectral and color flow Doppler). The study was technically difficult with many images being suboptimal in quality. Reason For Study: CARDIAC ARREST Ordering Physician: CLAIRE PRIDE Performed By: Kait Flores Interpretation Summary The left ventricular ejection fraction is normal. There is mild concentric left ventricular hypertrophy. Doppler measurements suggest pseudonormalized left ventricular relaxation, which is associated with grade II/IV or mild to moderate diastolic dysfunction The left ventricle is grossly normal size. There is inferior wall hypokinesis The right ventricular systolic function is normal. The left atrial size is normal. The right atrium is normal. There is a trace amount of mitral regurgitation There is no mitral valve stenosis. No aortic regurgitation is present. There is no aortic valve stenosis There is a trace or physiologic amount of tricuspid regurgitation Tricuspid regurgitation jet envelope not well defined to measure RV systolic pressure accurately. The aortic root is not well visualized. The inferior vena cava appeared normal and decreased < 50% with respiration (RAP 10-15 mmHg) There is no pericardial effusion. MMode/2D Measurements & Calculations RVDd: 2.7 cm LVIDd: 4.3 cm FS: 27.6 % Ao root diam: 3.1 cm IVSd: 1.3 cm LVIDs: 3.1 cm EDV(Teich): 81.7 ml LVPWd: 1.3 cm ESV(Teich): 37.6 ml Ao root area: 7.6 cm2 EF(Teich): 53.9 % LA dimension: 3.3 cm Doppler Measurements & Calculations MV E max rachana: MV P1/2t max rachana: Ao V2 max: LV V1 max P.3 cm/sec 96.7 cm/sec 145.8 cm/sec 2.8 mmHg MV A max rachana: MV P1/2t: 48.2 msec Ao max PG: LV V1 max: 130.8 cm/sec 8.5 mmHg 83.0 cm/sec MV E/A: 0.74 MVA(P1/2t): 4.6 cm2 MV dec slope: 587.9 cm/sec2 PA V2 max: 122.4 cm/sec PA max P.0 mmHg Left Ventricle The left ventricle is grossly normal size. There is mild concentric left ventricular hypertrophy. The left ventricular ejection fraction is normal. Doppler measurements suggest pseudonormalized left ventricular relaxation, which is associated with grade II/IV or mild to moderate diastolic dysfunction. There is inferior wall hypokinesis. Right Ventricle The right ventricle is grossly normal size. There is normal right ventricular wall thickness. The right ventricular systolic function is normal. Atria The right atrium is normal. The left atrial size is normal. Interarterial septum not well visualized and not well dopplered. Cannot comment on ASD/PFO presence. Mitral Valve The mitral valve is grossly normal. There is no mitral valve stenosis. There is a trace amount of mitral regurgitation. Aortic Valve The aortic valve is not well visualized secondary to technical limitations. There is no aortic valve stenosis. No aortic regurgitation is present. Tricuspid Valve The tricuspid valve is not well visualized secondary to technical limitations. There is no tricuspid stenosis. There is a trace or physiologic amount of tricuspid regurgitation. Tricuspid regurgitation jet envelope not well defined to measure RV systolic pressure accurately. Pulmonic Valve The pulmonic valve is not well visualized. Great Vessels The aortic root is not well visualized. The inferior vena cava appeared normal and decreased < 50% with respiration (RAP 10-15 mmHg). Effusions There is no pericardial effusion. : CLAIRE PRIDE > Hernandez Trevino
[2017-02-23] MEDS ORDERED: ASPIRIN 81 MG TABLET, CHEWABLE ONE (20:07)
[2017-02-23] MEDS: METOPROLOL TARTRATE 25 MG TABLET PO SCH ×2 (20:18→22:16)
[2017-02-23] MEDS ORDERED: METOPROLOL TARTRATE 25 MG TABLET PO ONE (20:30)
[2017-02-23 20:46] LABS: TROPONIN I 8.03 ng/mL
[2017-02-23] MEDS ORDERED: CLONIDINE HCL 0.1 MG TABLET PO SCH (22:00)
[2017-02-23] MEDS ORDERED: IBUPROFEN PO SCH (22:00)
[2017-02-23] MEDS ORDERED: FAMOTIDINE 20 MG TABLET PO SCH (22:00)
[2017-02-23] MEDS: RAMIPRIL 1.25 MG CAPSULE PO SCH (22:14)
[2017-02-23] MEDS ORDERED: KETOROLAC TROMETHAMINE INJ/PF 30 MG/1 ML SDV IV ONE (22:15)
[2017-02-23] MEDS: HYDROCHLOROTHIAZIDE 25 MG TABLET PO SCH (22:15)
[2017-02-23] MEDS: IBUPROFEN 800 MG TABLET PO SCH (22:15)
[2017-02-23] MEDS: CLONIDINE HCL 0.1 MG TABLET PO SCH (22:16)
[2017-02-23] MEDS: POTASSIUM CHLORIDE 20 MEQ/50 ML RTU IV SCH (22:17)
[2017-02-23] MEDS: ATORVASTATIN CALCIUM 80 MG TABLET PO SCH (22:19)
[2017-02-23] MEDS: FAMOTIDINE 20 MG TABLET PO SCH (22:20)
[2017-02-23 22:46] LABS: APPEARANCE,URINE CLEAR; BILIRUBIN,URINE NEGATIVE (NEGATIVE); GLUCOSE, URINE NEGATIVE (NEGATIVE); KETONES,URINE NEGATIVE (NEGATIVE); LEUKOCYTE ESTERASE,URINE NEGATIVE (NEGATIVE); NITRITE,URINE NEGATIVE (NEGATIVE); PROTEIN,URINE NEGATIVE (NEGATIVE); URINE SPECIFIC GRAVITY 1.011; UROBILINOGEN,URINE NEGATIVE mg/dL (<2.0)
[2017-02-24] MEDS: MAGNESIUM SULFATE 1 GM/D5W 100 ML IV SCH ×2 (00:20→01:12)
[2017-02-24] MEDS: POTASSIUM CHLORIDE 20 MEQ/50 ML RTU IV SCH (00:25)
[2017-02-24 02:25] LABS: CREATINE KINASE MB 65.6 ng/mL (<4.55)
[2017-02-24 02:30] LABS: TROPONIN I 26.1 ng/mL
[2017-02-24] MEDS: OXYCODONE-ACETAMINOPHEN 5-325 MG TABLET PO PRN ×2 (03:27→19:31)
--- NOTE | 2017-02-24 03:56 | EKG REPORT ---
SEVERITY:- NORMAL ECG - SINUS RHYTHM : Confirmed by: Shawna Koch MD 24-Feb-2017 03:56:05
--- NOTE | 2017-02-24 03:56 | EKG REPORT ---
SEVERITY:- ABNORMAL ECG - SINUS RHYTHM PROBABLE INFERIOR INFARCT, OLD ABNRM R PROG, CONSIDER ASMI OR LEAD PLACEMENT LATERAL LEADS ARE ALSO INVOLVED : Confirmed by: Shawna Koch MD 24-Feb-2017 03:56:08
[2017-02-24] MEDS: IBUPROFEN 800 MG TABLET PO SCH ×3 (05:06→20:12)
[2017-02-24] MEDS: NORMAL SALINE 1000 ML 1,000 ML IV PRN ×2 (05:07→17:20)
[2017-02-24 05:51] LABS: APPEARANCE,URINE CLEAR; BILIRUBIN,URINE NEGATIVE (NEGATIVE); GLUCOSE, URINE NEGATIVE (NEGATIVE); KETONES,URINE NEGATIVE (NEGATIVE); LEUKOCYTE ESTERASE,URINE NEGATIVE (NEGATIVE); NITRITE,URINE NEGATIVE (NEGATIVE); PROTEIN,URINE NEGATIVE (NEGATIVE); URINE SPECIFIC GRAVITY 1.012; UROBILINOGEN,URINE NEGATIVE mg/dL (<2.0)
[2017-02-24 08:25] LABS: HEMATOCRIT 30.3 % (36.0-47.0); HEMOGLOBIN 10.9 g/dL (12.0-15.5); HGB HCT DIFFERENCE 2.4; MEAN CORPUSCULAR HGB CONC 35.8 g/dL (32.0-36.0); MEAN CORPUSCULAR VOLUME 86 fl (80-97); RED BLOOD COUNT 3.51 10^6/uL (3.72-5.28); WHITE BLOOD COUNT 8.8 10^3/uL (4.0-10.5)
[2017-02-24 08:50] LABS: CREATINE KINASE MB 69.8 ng/mL (<4.55)
[2017-02-24 09:08] LABS: TROPONIN I 19.1 ng/mL
[2017-02-24 09:18] LABS: ALANINE AMINOTRANSFERASE 43 U/L (9-52); ALBUMIN 3.3 g/dL (3.5-5.0); ALKALINE PHOSPHATASE 64 U/L (38-126); ANION GAP 8 (5-19); ASPARTATE AMINO TRANSFERASE 110 U/L (14-36); BILIRUBIN,DIRECT 0.4 mg/dL (0.0-0.4); BILIRUBIN,TOTAL 0.6 mg/dL (0.2-1.3); BLOOD UREA NITROGEN 13 mg/dL (7-20); CALCIUM 9.4 mg/dL (8.4-10.2); CARBON DIOXIDE 25 mmol/L (22-30); CHLORIDE 107 mmol/L (98-107); CREATININE RESULT 0.86 mg/dL (0.52-1.25); GLUCOSE 112 mg/dL (75-110); MAGNESIUM 2.1 mg/dL (1.6-2.3); SODIUM 139.9 mmol/L (137-145); TOTAL PROTEIN 5.7 g/dL (6.3-8.2)
[2017-02-24] MEDS ORDERED: SUCCINYLCHOLINE CHLORIDE INJ 200 MG/10 ML VIAL ONE (09:45)
--- NOTE | 2017-02-24 09:48 | EKG REPORT ---
SEVERITY:- BORDERLINE ECG - SINUS RHYTHM BORDERLINE R WAVE PROGRESSION, ANTERIOR LEADS : Confirmed by: Hernandez Trevino 24-Feb-2017 09:47:54
[2017-02-24] MEDS ORDERED: ASPIRIN 325 MG TABLET, ENT COATED PO SCH (10:00)
[2017-02-24] MEDS ORDERED: CLOPIDOGREL BISULFATE 75 MG TABLET PO SCH (10:00)
--- NOTE | 2017-02-24 10:26 | PDOC PROGRESS REPORT ---
Subjective Progress Note for:: 02/24/17 Subjective:: Complains of pain in her left ankle. Physical Exam Vital Signs: Temp Pulse Resp BP Pulse Ox 99.1 F 83 20 123/83 97 02/24/17 07:41 02/24/17 08:00 02/24/17 07:41 02/24/17 07:41 02/24/17 07:41 Intake & Output 02/23/17 02/24/17 02/25/17 06:59 06:59 06:59 Intake Total 4852 670 Output Total 4454 225 Balance 2832 445 Weight 128.1 kg General appearance: PRESENT: no acute distress Eye exam: PRESENT: conjunctiva pink. ABSENT: scleral icterus Mouth exam: PRESENT: moist, tongue midline Neck exam: ABSENT: JVD Respiratory exam: PRESENT: clear to auscultation kip. ABSENT: rales, rhonchi, wheezes Cardiovascular exam: PRESENT: RRR. ABSENT: diastolic murmur, rubs, systolic murmur GI/Abdominal exam: PRESENT: normal bowel sounds, soft. ABSENT: distended, guarding, mass, organolmegaly, rebound, tenderness Extremities exam: PRESENT: other - Cast present on the left leg.. ABSENT: calf tenderness, clubbing, pedal edema Neurological exam: PRESENT: alert, awake, oriented to person, oriented to place , oriented to time, oriented to situation, CN II-XII grossly intact. ABSENT: motor sensory deficit Psychiatric exam: PRESENT: appropriate affect Skin exam: PRESENT: dry, intact, warm. ABSENT: cyanosis, rash Results Laboratory Results: 02/24/17 07:54 02/24/17 07:54 02/23/17 02/23/17 02/23/17 16:26 18:56 19:40 WBC 17.6 H RBC 4.22 Hgb 12.8 Hct 36.4 MCV 86 MCH 30.2 MCHC 35.0 RDW 13.1 Plt Count 315 Seg Neutrophils % 88.2 H Lymphocytes % 6.5 L Monocytes % 4.9 Eosinophils % 0.1 Basophils % 0.3 Absolute Neutrophils 15.5 H Absolute Lymphocytes 1.1 Absolute Monocytes 0.9 Absolute Eosinophils 0.0 Absolute Basophils 0.1 Sodium 140.9 Potassium 3.5 L Chloride 107 Carbon Dioxide 22 Anion Gap 12 BUN 13 Creatinine 0.71 Est GFR ( Amer) > 60 Est GFR (Non-Af Amer) > 60 Glucose 167 H Calcium 9.4 Magnesium 1.5 L Total Bilirubin 0.4 AST 26 ALT 34 Alkaline Phosphatase 67 Total Protein 6.4 Albumin 3.9 Urine Color Urine Appearance Urine pH Ur Specific [place] Urine Protein Urine Glucose (UA) Urine Ketones Urine Blood Urine Nitrite Ur Leukocyte Esterase Urine WBC (Auto) Urine RBC (Auto) 02/23/17 02/24/17 02/24/17 22:25 05:25 07:54 WBC 8.8 RBC 3.51 L Hgb 10.9 L Hct 30.3 L MCV 86 MCH 31.0 MCHC 35.8 RDW 13.0 Plt Count 262 Seg Neutrophils % Lymphocytes % Monocytes % Eosinophils % Basophils % Absolute Neutrophils Absolute Lymphocytes Absolute Monocytes Absolute Eosinophils Absolute Basophils Sodium Potassium Chloride Carbon Dioxide Anion Gap BUN Creatinine Est GFR ( Amer) Est GFR (Non-Af Amer) Glucose Calcium Magnesium Total Bilirubin AST ALT Alkaline Phosphatase Total Protein Albumin Urine Color YELLOW STRAW Urine Appearance CLEAR CLEAR Urine pH 5.0 5.0 Ur Specific [place] 1.011 1.012 Urine Protein NEGATIVE NEGATIVE Urine Glucose (UA) NEGATIVE NEGATIVE Urine Ketones NEGATIVE NEGATIVE Urine Blood NEGATIVE SMALL H Urine Nitrite NEGATIVE NEGATIVE Ur Leukocyte Esterase NEGATIVE NEGATIVE Urine WBC (Auto) 2 1 Urine RBC (Auto) 1 0 02/24/17 07:54 WBC RBC Hgb Hct MCV MCH MCHC RDW Plt Count Seg Neutrophils % Lymphocytes % Monocytes % Eosinophils % Basophils % Absolute Neutrophils Absolute Lymphocytes Absolute Monocytes Absolute Eosinophils Absolute Basophils Sodium 139.9 Potassium 4.0 Chloride 107 Carbon Dioxide 25 Anion Gap 8 BUN 13 Creatinine 0.86 Est GFR ( Amer) > 60 Est GFR (Non-Af Amer) > 60 Glucose 112 H Calcium 9.4 Magnesium 2.1 Total Bilirubin 0.6 AST 110 H ALT 43 Alkaline Phosphatase 64 Total Protein 5.7 L Albumin 3.3 L Urine Color Urine Appearance Urine pH Ur Specific [place] Urine Protein Urine Glucose (UA) Urine Ketones Urine Blood Urine Nitrite Ur Leukocyte Esterase Urine WBC (Auto) Urine RBC (Auto) 02/23/17 02/23/17 02/23/17 16:26 16:26 16:26 Creatine Kinase 70 CK-MB (CK-2) 1.07 Troponin I 0.022 Cancelled 02/23/17 02/23/17 02/24/17 19:40 19:40 01:45 Creatine Kinase 251 H 630 H CK-MB (CK-2) 30.00 H Troponin I 8.030 02/24/17 02/24/17 02/24/17 01:45 07:54 07:54 Creatine Kinase 743 H CK-MB (CK-2) 65.60 H 69.80 H Troponin I 26.100 19.100 Impressions: Ankle X-Ray 02/23/17 00:00 IMPRESSION: IMAGE(S) OBTAINED DURING PROCEDURE. Fluoroscopy 02/23/17 00:00 IMPRESSION: IMAGE(S) OBTAINED DURING PROCEDURE. Assessment & Plan - Diagnosis (1) Cardiac arrest Is this a current diagnosis for this admission?: Yes Plan: The patient had a ventricular fibrillation cardiac arrest that was witnessed in the PACU. The patient received a short course of CPR and was DC cardioverted 1 with resumption of normal sinus rhythm. The patient has been counseled that she should go to a tertiary care facility however she refuses. She is competent to make decisions. Will continue with heparin drip, metoprolol, Plavix, aspirin. (2) Coronary artery disease Qualifiers: Coronary Disease-Associated Artery/Lesion type: [place] artery Associated angina: angina presence unspecified Is this a current diagnosis for this admission?: Yes Plan: The patient has a history of coronary artery disease by her report but tells me that she had a cardiac catheterization 2002 with no blockages. Patient has elevated troponins consistent with a non-STEMI. Continue with aspirin, Plavix, heparin, beta-inés. (3) Hypertension Is this a current diagnosis for this admission?: Yes (4) Ankle fracture Is this a current diagnosis for this admission?: Yes Plan: Patient had surgical repair - Time Time Spent with patient: 25-34 minutes - Inpatient Certification Medical Necessity: Need Close Monitoring Due to Risk of Patient Decompensation - Plan Summary Plan Summary: I again told patient that she should be transferred to a tertiary care center. She again refuses. She is competent to make these decisions
[2017-02-24] MEDS: POTASSI CL 20 MEQ/50 ML RIDER 20 MEQ/50 ML RTUPB IV SCH ×2 (11:44→14:31)
[2017-02-24] MEDS ORDERED: METOPROLOL TARTRATE 25 MG TABLET PO ONE (12:00)
[2017-02-24] MEDS: MORPHINE SULFATE 10 MG/ML INJ IV PRN ×3 (12:10→20:46)
--- NOTE | 2017-02-24 13:27 | PDOC PROGRESS REPORT ---
Subjective Progress Note for:: 02/24/17 Subjective:: Patient seems to be doing better with gradual improvement. Pt is denying any chest arm or neck discomfort. Patient denying any PND, orthopnea. Patient denied any sustained palpitations, dizziness, syncope, near syncope. Patient denying any fever chills. Patient denying any other significant discomfort. Patient is maintaining sinus rhythm. Review of systems: Rest review of systems negative. Medications: Medications have been reviewed. Physical Exam Vital Signs: Temp Pulse Resp BP Pulse Ox 99.3 F 71 16 137/89 H 97 02/24/17 12:00 02/24/17 12:30 02/24/17 12:30 02/24/17 12:24 02/24/17 12:30 Intake & Output 02/23/17 02/24/17 02/25/17 06:59 06:59 06:59 Intake Total 4852 1020 Output Total 2019 2280 Balance 2832 -1260 Weight 128.1 kg Exam: GENERAL: well-nourished and in no acute distress. Alert and oriented x3 HEAD: Atraumatic, normocephalic. EYES: Pupils equal round and reactive to light, extraocular movements intact, sclera anicteric, conjunctiva are normal. ENT: TMs normal, nares patent, oropharynx clear without exudates. Moist mucous membranes. No oral ulcerations or bleeding gums noted NECK: supple without lymphadenopathy. Trachea is central. No cervical or axillary lymphadenopathy noted. Carotids are 2+, JVD WNL LUNGS: Respiration seems nonlabored, no significant accessory muscle action noted. Breath sounds clear to auscultation bilaterally and equal noted. No wheezes rales or rhonchi noted. No significant dullness noted on percussion. CHEST: Palpation of the chest wall shows no significant chest wall tenderness. No other significant abnormalities noted. HEART: Howard [employer], No PSH, 1/6 RUSSEL aortic area, 1/6 vázquez systolic murmur mitral area, no rubs, no gallops. ABDOMEN: Soft, no significant tenderness appreciated, normoactive bowel sounds. No guarding, no rebound. No rigidity noted . No masses appreciated. EXTREMITIES: Pedal pulses are 1-2+, no calf tenderness noted. No clubbing or cyanosis.trace to 1+ pedal edema noted NEUROLOGICAL: Focused neurological exam showed no significant neurologic deficit. Normal speech, no focal weakness appreciated. PSYCH: Normal mood, normal affect. Judgment and insight within normal limits. SKIN: No significant ecchymosis, rash, ulcerations or signs of pruritus noted. MUSCULOSKELETAL EXAM: No significant joint swelling noted. Left foot in cast post surgery Results Laboratory Results: 02/24/17 07:54 02/24/17 07:54 02/23/17 02/23/17 02/23/17 16:26 18:56 19:40 WBC 17.6 H RBC 4.22 Hgb 12.8 Hct 36.4 MCV 86 MCH 30.2 MCHC 35.0 RDW 13.1 Plt Count 315 Seg Neutrophils % 88.2 H Lymphocytes % 6.5 L Monocytes % 4.9 Eosinophils % 0.1 Basophils % 0.3 Absolute Neutrophils 15.5 H Absolute Lymphocytes 1.1 Absolute Monocytes 0.9 Absolute Eosinophils 0.0 Absolute Basophils 0.1 Sodium 140.9 Potassium 3.5 L Chloride 107 Carbon Dioxide 22 Anion Gap 12 BUN 13 Creatinine 0.71 Est GFR ( Amer) > 60 Est GFR (Non-Af Amer) > 60 Glucose 167 H Calcium 9.4 Magnesium 1.5 L Total Bilirubin 0.4 AST 26 ALT 34 Alkaline Phosphatase 67 Total Protein 6.4 Albumin 3.9 Urine Color Urine Appearance Urine pH Ur Specific [place] Urine Protein Urine Glucose (UA) Urine Ketones Urine Blood Urine Nitrite Ur Leukocyte Esterase Urine WBC (Auto) Urine RBC (Auto) 02/23/17 02/24/17 02/24/17 22:25 05:25 07:54 WBC 8.8 RBC 3.51 L Hgb 10.9 L Hct 30.3 L MCV 86 MCH 31.0 MCHC 35.8 RDW 13.0 Plt Count 262 Seg Neutrophils % Lymphocytes % Monocytes % Eosinophils % Basophils % Absolute Neutrophils Absolute Lymphocytes Absolute Monocytes Absolute Eosinophils Absolute Basophils Sodium Potassium Chloride Carbon Dioxide Anion Gap BUN Creatinine Est GFR ( Amer) Est GFR (Non-Af Amer) Glucose Calcium Magnesium Total Bilirubin AST ALT Alkaline Phosphatase Total Protein Albumin Urine Color YELLOW STRAW Urine Appearance CLEAR CLEAR Urine pH 5.0 5.0 Ur Specific [place] 1.011 1.012 Urine Protein NEGATIVE NEGATIVE Urine Glucose (UA) NEGATIVE NEGATIVE Urine Ketones NEGATIVE NEGATIVE Urine Blood NEGATIVE SMALL H Urine Nitrite NEGATIVE NEGATIVE Ur Leukocyte Esterase NEGATIVE NEGATIVE Urine WBC (Auto) 2 1 Urine RBC (Auto) 1 0 02/24/17 07:54 WBC RBC Hgb Hct MCV MCH MCHC RDW Plt Count Seg Neutrophils % Lymphocytes % Monocytes % Eosinophils % Basophils % Absolute Neutrophils Absolute Lymphocytes Absolute Monocytes Absolute Eosinophils Absolute Basophils Sodium 139.9 Potassium 4.0 Chloride 107 Carbon Dioxide 25 Anion Gap 8 BUN 13 Creatinine 0.86 Est GFR ( Amer) > 60 Est GFR (Non-Af Amer) > 60 Glucose 112 H Calcium 9.4 Magnesium 2.1 Total Bilirubin 0.6 AST 110 H ALT 43 Alkaline Phosphatase 64 Total Protein 5.7 L Albumin 3.3 L Urine Color Urine Appearance Urine pH Ur Specific [place] Urine Protein Urine Glucose (UA) Urine Ketones Urine Blood Urine Nitrite Ur Leukocyte Esterase Urine WBC (Auto) Urine RBC (Auto) 02/23/17 02/23/17 02/23/17 16:26 16:26 16:26 Creatine Kinase 70 CK-MB (CK-2) 1.07 Troponin I 0.022 Cancelled 02/23/17 02/23/17 02/24/17 19:40 19:40 01:45 Creatine Kinase 251 H 630 H CK-MB (CK-2) 30.00 H Troponin I 8.030 02/24/17 02/24/17 02/24/17 01:45 07:54 07:54 Creatine Kinase 743 H CK-MB (CK-2) 65.60 H 69.80 H Troponin I 26.100 19.100 Impressions: Ankle X-Ray 02/23/17 00:00 IMPRESSION: IMAGE(S) OBTAINED DURING PROCEDURE. Fluoroscopy 02/23/17 00:00 IMPRESSION: IMAGE(S) OBTAINED DURING PROCEDURE. Assessment & Plan - Diagnosis (1) Ventricular fibrillation Is this a current diagnosis for this admission?: Yes (2) ST-segment elevation myocardial infarction (STEMI) of inferior wall Is this a current diagnosis for this admission?: Yes (3) Cardiac arrest Is this a current diagnosis for this admission?: Yes (4) Coronary artery disease Qualifiers: Coronary Disease-Associated Artery/Lesion type: [place] artery Associated angina: angina presence unspecified Is this a current diagnosis for this admission?: Yes (5) Hypertension Is this a current diagnosis for this admission?: Yes - Notes Notes: Patient is still refusing tertiary care and transfer to [place] because of previous bad experience. Fortunately patient's EKG has improved and ST segment elevation has resolved. Patient also no longer had any cardiac dysrhythmias. At this point will recommend continuing aspirin, heparin, switch to Lovenox, beta-inés, SHYANNE inhibitors, hypotensive statin. Patient informed that still heart catheterization is the best option but if she continues to refuse, will recommend performing a stress test prior to discharge. Would recommend stress test be performed on Monday. In view of ventricular fibrillation, early discharge is not indicated, need to wait out several days as risk of ventricular dysrhythmia and gradually dissipates with time, in the absence of revascularization. ST segment elevation myocardial infarction: Patient still refusing transfer to tertiary care. She refused cardiac catheterization because of a previous bad experience. Patient does not want invasive treatment. Patient to be treated with medical management. This should include statins, aspirin, heparin, beta- blockers, SHYANNE inhibitors. TPA and other thrombolytics felt to be relatively contraindicated. Also patient not having any active chest pain. Patient not diabetic. Patient had a stat 2D echo and which shows wall motion abnormalities limited to inferior wall and overall LVEF within normal limits. Also therefore it was felt that risk benefits did not favor thrombolytic therapy at this point , at this current status as patient was not having chest pain and was hemodynamically stable. Cardiac arrest secondary to ventricular fibrillation from myocardial infarction. Patient to be monitored in the unit. Coronary artery disease: Medical management will be optimized. Hypertension: Recommend good control of blood pressure. Blood pressure goal 140 /90 or less. - Time Time with patient: Greater than 35 minutes - CODE STATUS was discussed, patient remains full code. Surrogate decision-maker unchanged. Multiple medical problems were addressed. More than 50% of the time spent coordinating care, discussing management plans with involved caregivers. Management plans discussed with involved personnels. Medical decision making was of moderate to high complexity, patient's has multiple comorbidities. Medications reviewed and adjusted accordingly: Yes
--- NOTE | 2017-02-24 15:47 | PDOC TRANSFER SUMMARY ---
General Admission Date/PCP: 02/23/17 18:00 AMBER OLIVAREZ Transfer Date: 02/23/17 Accepting Facility: [facility] Accepting Physician: dr bautista Resuscitation Status: Full Code - Transfer Diagnosis (1) Cardiac arrest Is this a current diagnosis for this admission?: Yes Diagnosis Summary: Ventricular fibrillation cardiac arrest treated with CPR and cardioversion with resumption of normal sinus rhythm (2) Coronary artery disease Is this a current diagnosis for this admission?: Yes Diagnosis Summary: Positive troponins. Patient had temporary elevation of the ST segment leads in inferior distribution. (3) Hypertension Is this a current diagnosis for this admission?: Yes (4) Ankle fracture Is this a current diagnosis for this admission?: Yes Diagnosis Summary: Patient had open reduction internal fixation of the left ankle fracture. - Transfer Medications Home Medications: Tramadol HCl 50 mg PO Q6HP PRN 02/20/17 Oxycodone HCl [Oxy-Ir 5 mg Tablet] 5 mg PO Q6HP PRN 02/24/17 Transfer Medications: Current Medications Acetaminophen (Tylenol 325 Mg Tablet) 650 mg PO Q4HP PRN PRN Reason: FOR PAIN OR TEMP Stop: 03/25/17 18:44 Albuterol/Ipratropium (Duoneb 3 Ml Ampul) 3 ml NEB RTQ6HP PRN PRN Reason: FOR WHEEZING Stop: 03/25/17 18:44 Aspirin (Ecotrin 325 Mg Ec Tablet) 325 mg PO DAILY [facility] Stop: 03/26/17 09:59 Last Admin: 02/24/17 11:45 Dose: 325 mg Atorvastatin Calcium (Lipitor 80 Mg Tablet) 80 mg PO QHS [facility] Stop: 03/25/17 21:59 Last Admin: 02/23/17 22:19 Dose: 80 mg Clonidine (Catapres 0.1 Mg Tablet) 0.1 mg PO QHS [facility] Stop: 03/25/17 21:59 Last Admin: 02/23/17 22:16 Dose: 0.1 mg Clopidogrel Bisulfate (Plavix 75 Mg Tablet) 75 mg PO DAILY [facility] Stop: 03/26/17 09:59 Last Admin: 02/24/17 11:45 Dose: 75 mg Famotidine (Pepcid 20 Mg Tablet) 40 mg PO QHS [facility] Stop: 03/25/17 21:59 Last Admin: 02/23/17 22:20 Dose: 40 mg Heparin Sodium (Porcine) (Heparin Inj 1,000 Unit/Ml 10 Ml Vial) 0 - 12,000 unit IV .BOLUS PER PROTOCOL PRN; Protocol PRN Reason: RESPOND TO aPTT VALUE Stop: 03/25/17 18:50 Last Admin: 02/24/17 03:20 Dose: 6,667 unit Hydrochlorothiazide (Hydrodiuril 25 Mg Tablet) 25 mg PO QHS [facility] Stop: 03/25/17 21:59 Last Admin: 02/23/17 22:15 Dose: 25 mg Sodium Chloride (Nacl 0.9% 1000 Ml Iv Soln) 1,000 mls @ 100 mls/hr IV CONTINUOUS PRN PRN Reason: THIS MED IS NOT "PRN" Stop: 03/25/17 18:44 Last Admin: 02/24/17 05:07 Dose: 1,000 ml Heparin Sodium/Dextrose (Heparin Rtu 25,000 Unit/250 Ml D5w Premix) 25,000 unit in 250 mls @ 0 mls/hr IV CONTINUOUS PRN; Protocol; Titrate PRN Reason: THIS MED IS NOT "PRN" Stop: 03/25/17 18:50 Last Admin: 02/24/17 05:07 Dose: 250 ml Potassium Chloride/Water (Potassium Chloride Killian 20 Meq/50 Ml) 20 meq in 50 mls @ 25 mls/hr IV Q2H [facility] Stop: 02/24/17 15:59 Last Admin: 02/24/17 14:31 Dose: 50 ml Ibuprofen (Motrin 800 Mg Tablet) 800 mg PO Q8 [facility] Stop: 03/25/17 21:59 Last Admin: 02/24/17 14:32 Dose: 800 mg Metoprolol Tartrate (Lopressor 25 Mg Tablet) 50 mg PO Q12 [facility] Stop: 03/26/17 21:59 Morphine Sulfate (Morphine 10 Mg/Ml Inj) 2 mg IV Q4HP PRN PRN Reason: FOR PAIN Stop: 03/03/17 11:05 Last Admin: 02/24/17 12:10 Dose: 2 mg Ondansetron HCl (Zofran Inj/Pf 4 Mg/2 Ml Sdv) 4 mg IV Q6HP PRN PRN Reason: FOR NAUSEA/VOMITING Stop: 03/25/17 18:44 Last Admin: 02/24/17 03:27 Dose: 4 mg Ondansetron HCl (Zofran Odt 4 Mg Tablet) 4 mg PO Q6HP PRN PRN Reason: FOR NAUSEA/VOMITING Stop: 03/25/17 18:44 Oxycodone/Acetaminophen (Percocet 5-325 Mg Tablet) 1 tab PO Q4HP PRN PRN Reason: FOR MORE SEVERE PAIN Stop: 03/02/17 18:44 Last Admin: 02/24/17 03:27 Dose: 1 tab Ramipril (Altace 1.25 Mg Capsule) 1.25 mg PO QHS [facility] Stop: 03/25/17 21:59 Last Admin: 02/23/17 22:14 Dose: 1.25 mg Sodium Chloride (Saline Flush 2.5 Ml Monoject Prefil Syrin) 2.5 ml IV Q8 [facility] Stop: 03/25/17 21:59 Last Admin: 02/24/17 14:31 Dose: 2.5 ml - Allergies Allergies/Adverse Reactions: No Known Allergies Allergy (Verified 02/23/17 13:08) - Diet/Activity Discharge Diet: As Tolerated Hospital Course Hospital Course: 51-year-old female with a history of hypertension who presented as an outpatient for an open reduction internal fixation of a left ankle fracture. Patient did well with surgery however in the PACU she had a witnessed ventricular fibrillation arrest. Patient had CPR and DC cardioversion 1 with resumption of normal sinus rhythm. The patient was going to be transferred to [facility] and the helicopter was called for. When they arrived the patient refused to be transferred. She was aware of the high risk for if she stated our facility however she was insistent that she would not leave the facility. The patient was noted to have ST segment elevation in leads III and aVF. Patient did have a non-STEMI with elevation in troponins up to 26. Overnight the patient has had episodes of ventricular tachycardia but no further ventricular fibrillation. The patient was treated with aspirin, Plavix , heparin drip and metoprolol. Patient did not receive thrombolytics because of her refusal to be transferred if she had complications. At no time did the patient have any chest pain. The patient finally agreed to be transferred and we are transferring to [facility] Dr. Bautista is the accepting physician. The patient does relate having a history of a cardiac catheterization in 2002. She reports at that time she had complications with a heart catheterization with bleeding from her femoral area. She reports that she did not have any blocked arteries at that time although I do not have a cardiac catheterization report. The patient will be transferred to the care of Dr. Bautista. Physical Exam Vital Signs: Temp Pulse Resp BP Pulse Ox 99.5 F 75 19 124/75 96 02/24/17 14:00 02/24/17 14:00 02/24/17 14:00 02/24/17 14:00 02/24/17 14:00 Intake & Output 02/23/17 02/24/17 02/25/17 06:59 06:59 06:59 Intake Total 4852 1020 Output Total 2019 2680 Balance 2832 -1660 Weight 128.1 kg General appearance: PRESENT: no acute distress Eye exam: PRESENT: conjunctiva pink. ABSENT: scleral icterus Ear exam: PRESENT: normal external ear exam Mouth exam: PRESENT: moist, tongue midline Neck exam: ABSENT: JVD Respiratory exam: PRESENT: clear to auscultation kip. ABSENT: rales, rhonchi, wheezes Cardiovascular exam: PRESENT: RRR. ABSENT: diastolic murmur, rubs, systolic murmur Pulses: PRESENT: normal dorsalis pedis pul GI/Abdominal exam: PRESENT: normal bowel sounds, soft. ABSENT: distended, guarding, mass, organolmegaly, rebound, tenderness Extremities exam: PRESENT: other - Cast in place on the left leg. ABSENT: calf tenderness, clubbing, pedal edema Neurological exam: PRESENT: alert, awake, oriented to person, oriented to place , oriented to time, oriented to situation, CN II-XII grossly intact. ABSENT: motor sensory deficit Psychiatric exam: PRESENT: appropriate affect Skin exam: PRESENT: dry, intact, warm. ABSENT: cyanosis, rash Results Laboratory Results: 02/24/17 07:54 02/24/17 07:54 02/23/17 02/23/17 02/23/17 16:26 18:56 19:40 WBC 17.6 H RBC 4.22 Hgb 12.8 Hct 36.4 MCV 86 MCH 30.2 MCHC 35.0 RDW 13.1 Plt Count 315 Seg Neutrophils % 88.2 H Lymphocytes % 6.5 L Monocytes % 4.9 Eosinophils % 0.1 Basophils % 0.3 Absolute Neutrophils 15.5 H Absolute Lymphocytes 1.1 Absolute Monocytes 0.9 Absolute Eosinophils 0.0 Absolute Basophils 0.1 Sodium 140.9 Potassium 3.5 L Chloride 107 Carbon Dioxide 22 Anion Gap 12 BUN 13 Creatinine 0.71 Est GFR ( Amer) > 60 Est GFR (Non-Af Amer) > 60 Glucose 167 H Calcium 9.4 Magnesium 1.5 L Total Bilirubin 0.4 AST 26 ALT 34 Alkaline Phosphatase 67 Total Protein 6.4 Albumin 3.9 Urine Color Urine Appearance Urine pH Ur Specific Peterson Urine Protein Urine Glucose (UA) Urine Ketones Urine Blood Urine Nitrite Ur Leukocyte Esterase Urine WBC (Auto) Urine RBC (Auto) 02/23/17 02/24/17 02/24/17 22:25 05:25 07:54 WBC 8.8 RBC 3.51 L Hgb 10.9 L Hct 30.3 L MCV 86 MCH 31.0 MCHC 35.8 RDW 13.0 Plt Count 262 Seg Neutrophils % Lymphocytes % Monocytes % Eosinophils % Basophils % Absolute Neutrophils Absolute Lymphocytes Absolute Monocytes Absolute Eosinophils Absolute Basophils Sodium Potassium Chloride Carbon Dioxide Anion Gap BUN Creatinine Est GFR ( Amer) Est GFR (Non-Af Amer) Glucose Calcium Magnesium Total Bilirubin AST ALT Alkaline Phosphatase Total Protein Albumin Urine Color YELLOW STRAW Urine Appearance CLEAR CLEAR Urine pH 5.0 5.0 Ur Specific Peterson 1.011 1.012 Urine Protein NEGATIVE NEGATIVE Urine Glucose (UA) NEGATIVE NEGATIVE Urine Ketones NEGATIVE NEGATIVE Urine Blood NEGATIVE SMALL H Urine Nitrite NEGATIVE NEGATIVE Ur Leukocyte Esterase NEGATIVE NEGATIVE Urine WBC (Auto) 2 1 Urine RBC (Auto) 1 0 02/24/17 07:54 WBC RBC Hgb Hct MCV MCH MCHC RDW Plt Count Seg Neutrophils % Lymphocytes % Monocytes % Eosinophils % Basophils % Absolute Neutrophils Absolute Lymphocytes Absolute Monocytes Absolute Eosinophils Absolute Basophils Sodium 139.9 Potassium 4.0 Chloride 107 Carbon Dioxide 25 Anion Gap 8 BUN 13 Creatinine 0.86 Est GFR ( Amer) > 60 Est GFR (Non-Af Amer) > 60 Glucose 112 H Calcium 9.4 Magnesium 2.1 Total Bilirubin 0.6 AST 110 H ALT 43 Alkaline Phosphatase 64 Total Protein 5.7 L Albumin 3.3 L Urine Color Urine Appearance Urine pH Ur Specific Peterson Urine Protein Urine Glucose (UA) Urine Ketones Urine Blood Urine Nitrite Ur Leukocyte Esterase Urine WBC (Auto) Urine RBC (Auto) 02/23/17 02/23/17 02/23/17 16:26 16:26 16:26 Creatine Kinase 70 CK-MB (CK-2) 1.07 Troponin I 0.022 Cancelled 02/23/17 02/23/17 02/24/17 19:40 19:40 01:45 Creatine Kinase 251 H 630 H CK-MB (CK-2) 30.00 H Troponin I 8.030 02/24/17 02/24/17 02/24/17 01:45 07:54 07:54 Creatine Kinase 743 H CK-MB (CK-2) 65.60 H 69.80 H Troponin I 26.100 19.100 Impressions: Ankle X-Ray 02/23/17 00:00 IMPRESSION: IMAGE(S) OBTAINED DURING PROCEDURE. Fluoroscopy 02/23/17 00:00 IMPRESSION: IMAGE(S) OBTAINED DURING PROCEDURE. Plan Discharge Plan: Patient is transferred to [facility]. Dr. Bautista is the accepting physician. Time Spent: Greater than 30 Minutes
[2017-02-24] MEDS: FAMOTIDINE 20 MG TABLET PO SCH (20:09)
[2017-02-24] MEDS: ATORVASTATIN CALCIUM 80 MG TABLET PO SCH (20:10)
[2017-02-24] MEDS: HYDROCHLOROTHIAZIDE 25 MG TABLET PO SCH (20:11)
[2017-02-24] MEDS: RAMIPRIL 1.25 MG CAPSULE PO SCH (20:13)
[2017-02-24] MEDS: CLONIDINE HCL 0.1 MG TABLET PO SCH (20:14)
[2017-02-24 20:54] VITALS: BP 131/88
[2017-02-24] MEDS ORDERED: METOPROLOL TARTRATE 25 MG TABLET PO SCH (22:00)
== END 2017-02-24 21:09 | disposition short-term general hospital (02) | DRG 981 ==
LOC: OROUT 12:23 → ICU 18:00
PROVIDERS: ADMIT Internal Medicine; ATTEND Internal Medicine
PROC: 5A2204Z Restoration of Cardiac Rhythm, Single (ICD-10-PCS; 2017-02-23)
PROC: 5A12012 Performance of Cardiac Output, Single, Manual (ICD-10-PCS; 2017-02-23)
PROC: 0QSK04Z Reposition Left Fibula with Internal Fixation Device, Open Approach (ICD-10-PCS; principal; 2017-02-23 13:45)
DX: I49.01 Ventricular fibrillation (principal); I21.19 ST elevation (STEMI) myocardial infarction involving other coronary artery of inferior wall; I97.121 Postprocedural cardiac arrest following other surgery; S82.62XA Displaced fracture of lateral malleolus of left fibula, initial encounter for closed fracture; I25.10 Atherosclerotic heart disease of native coronary artery without angina pectoris; I10 Essential (primary) hypertension; M17.12 Unilateral primary osteoarthritis, left knee; Z79.899 Other long term (current) drug therapy; I25.2 Old myocardial infarction
CPT/HCPCS: 01480; 36415; 80048; 80053; 81001; 81025; 82550; 82553; 83735; 84484; 85025; 85027; 85610; 85730; 93005; 93010; 93306; C1713; J0131; J0171; J0330; J0360; J0690; J1170; J1644; J1885; J2250; J2270; J2310; J2405; J2550; J2704; J3010; J3475; J3480; J3490; J7030